=== PATIENT | female | born 1980 | race Caucasian/White ===

== ENCOUNTER 2016-10-14 07:05 | Outpatient (CLI) | payer BC ==
[~2016-10-14] VITALS: Ht 167.6 cm; Wt 57.2 kg
[2016-10-14 07:21] VITALS: BP 141/81; PULSE 98
[2016-10-14 08:40] VITALS: BP 102/64; PULSE 80
[2016-10-14 08:50] VITALS: BP 120/77; PULSE 82; TEMP 98.1
[2016-10-14 09:05] VITALS: BP 120/82; PULSE 79; TEMP 98.6
[2016-10-14 09:24] VITALS: BP 110/70; PULSE 88
== END 2016-10-14 09:40 | disposition home or self-care (01) ==
LOC: COL.RAD 07:05
DX: G93.2 Benign intracranial hypertension (principal); J32.8 Other chronic sinusitis

== ENCOUNTER → 2016-10-14 | Outpatient (CLI) | payer BC ==
[~2016-10-14] MED LIST: NORTREL 35 MCG-1 TA1 PO; PRENATAL VITAMI1 TA5 PO; PRILOSEC40 MG PO; PROVENTIL0.09 MG/A1 IH
[2016-10-14 16:53] LABS: CSF APPEARANCE CLEAR; CSF COLOR COLORLESS
[2016-10-14 19:43] LABS: CEREBROSPINAL TUBE #4
[2016-10-19 10:49] LABS: CSF,IGG 2.3 mg/dL (<=8.1)
[2016-10-19 11:20] LABS: ALBUMIN CSF 12.4 mg/dL (<=27.0); CSF IGG/ALBUMIN 0.19 (<=0.21)
[2016-10-19 11:32] LABS: CSF SYNTHESIS RATE 2.38 mg/24 h (<=12); CSF-IGG INDEX 0.7 (<=0.85); IGG/ALBUMIN SERUM 0.27 (<=0.40)
== END ==
LOC: ZCOL.LAB 15:05
PROVIDERS: Psychiatry & Neurology Neurology
DX: G93.2 Benign intracranial hypertension (principal)